=== PATIENT | female | born 1965 | race African-American/Black ===

== ENCOUNTER → 2017-05-30 | Outpatient (CLI) | payer OTHER ==
--- NOTE | ~2017-05-30 | US128 ---
[id number] [facility]. [facility] [address] [place], [place] [address] [id number] O MR#: [id number] Acc #: [id number] NAME: MIGUELINA WALTON : 1965 SEX: F STUDY DATE/TIME: 05/30/2017 13:37 UNIT: [facility] ROOM: STUDY DESCRIPTION: Thyroid Attending Physician: Cynthia Izaguirre M.D. Referring Physician: Cynthia Izaguirre M.D. Ordering Physician: Jatinder Izaguirre M.D. Primary Care Physician: Generic Doctor Not In System MEDICAL IMAGING REPORT This report is preliminary unless electronic signature is present EXAM Thyroid ultrasound, 05/30/17 COMPARISON STUDIES None. HISTORY Thyromegaly on physical examination on May 16. FINDINGS There is a large heterogeneous lesion replacing much of the right lower pole of the gland measuring 3.4 x 4.3 x 3.8 cm. It is of normal to slightly increased vascularity. The left lobe is the gland is minimally heterogeneous, but otherwise normal in appearance without discrete nodule. The technologist has measured a region in the left lobe of the gland, and indicated on the work sheet that this represents a nodule, but findings do not support the presence of a nodule in the left lobe of the gland. IMPRESSION Normal left lobe, dominant right lobe, mid to lower pole nodule, 3.4 x 4.3 x 3.8 cm. The lesion would be easily amenable to ultrasound guided needle aspiration. Dictated by... Jorge Nixon M.D. THIS IS AN ELECTRONICALLY VERIFIED REPORT Jorge Nixon M.D. at 06/04/2017 10:33 AM EUGENIO/stu TD: 05/30/2017 23:04 JOB #: [id number] MEDICAL IMAGING REPORT Page 1 of 1 COPY
== END | disposition home or self-care (01) ==
LOC: CGUS 13:19
DX: E01.0 Iodine-deficiency related diffuse (endemic) goiter (principal); E04.1 Nontoxic single thyroid nodule
CPT/HCPCS: 76536